=== PATIENT | male | born 1970 | race Caucasian/White ===

== ENCOUNTER 2020-03-12 12:50 | Emergency (ER) | payer OTHER ==
[~2020-03-12] VITALS: Ht 188 cm; Wt 111.1 kg
[2020-03-12 13:32] LABS: Basophils # (auto) 0 10 ^3/uL (0-0.2); Basophils % (auto) 0.6 % (0.0-2.0); Eosinophils # (auto) 0.3 10 ^3/uL (0-0.8); Eosinophils % (auto) 4.7 % (0.0-7.0); Hematocrit 42.3 % (41.0-53.0); Hemoglobin 14.5 g/dL (13.5-17.5); Lymphocytes # (auto) 1.8 10 ^3/uL (0.4-5.4); Lymphocytes % (auto) 30.4 % (10.0-50.0); Mean Corpuscular Hgb Conc. 34.2 g/dL (32.0-36.0); Mean Corpuscular Volume 84.6 fL (80.0-100.0); Monocytes # (auto) 0.4 10 ^3/uL (0-1.3); Monocytes % (auto) 6.4 % (0.0-12.0); Neutrophils # (auto) 3.4 10 ^3/uL (1.6-8.6); Neutrophils % (auto) 57.9 % (37.0-80.0); Nucleated Red Blood Cells % 0.1 %; Platelet Count (auto) 199 10^3/uL (140-450); Red Cell Distribution Width 13.8 % (11.8-14.3); White Blood Cell 5.9 10^3/uL (4.4-10.8)
[2020-03-12 13:44] LABS: Chloride 103 mmol/L (98-107); Potassium 4.1 mmol/L (3.5-5.1); Sodium 136 mmol/L (136-145)
[2020-03-12 13:56] LABS: Alanine Aminotransferase 41 U/L (16-61); Albumin 4.4 g/dL (3.4-5.0); Alkaline Phosphatase 86 U/L (45-117); Anion Gap 7 (5-15); Aspartate Aminotransferase 18 U/L (15-37); BUN/Creatinine Ratio 12.1; Bilirubin, Total 0.8 mg/dL (0.2-1.0); Blood Urea Nitrogen 13 mg/dL (7-18); Calcium 9.1 mg/dL (8.5-10.1); Carbon Dioxide 26 mmol/L (21-32); GFR African American 94 mL/min; GFR Non-African American 78 mL/min; Glucose 158 mg/dL (74-106); Total Protein 7.7 g/dL (6.4-8.2)
[2020-03-12] MEDS ORDERED: ASPirin 81 mg TAB PO ONE (16:00)
[2020-03-12 16:52] LABS: INR 1.03 (0.9-1.15); Partial Thromboplastin Time 31.3 sec (23.0-31.2)
[2020-03-12 18:14] VITALS: BP 146/94
== END 2020-03-12 18:20 | disposition home or self-care (01) ==
LOC: ER 12:50
DX: R07.89 Other chest pain (principal); I10 Essential (primary) hypertension; E78.5 Hyperlipidemia, unspecified; E11.9 Type 2 diabetes mellitus without complications; Z88.8 Allergy status to other drugs, medicaments and biological substances
CPT/HCPCS: 36415; 71046; 80053; 83735; 83880; 84443; 84484; 85025; 85379; 85610; 85730; 93005